=== PATIENT | female | born 1990 | race African-American/Black ===

== ENCOUNTER 2016-09-15 15:36 | Observation (INO) | payer SELFPAY | END 2016-09-15 17:32 | disposition home or self-care (01) | LOC: 3 SO LND 15:36 | PROVIDERS: ADMIT Specialist; ATTEND Specialist | DX: O26.893 Other specified pregnancy related conditions, third trimester (principal); R10.30 Lower abdominal pain, unspecified; Z3A.00 Weeks of gestation of pregnancy not specified | CPT/HCPCS: G0378; G0379 ==